=== PATIENT | female | born 1965 | race Caucasian/White ===

== ENCOUNTER 2025-09-13 11:05 | Emergency (ER) | payer BC, SELFPAY ==
[2025-09-13 11:07] VITALS: BP 118/70
[2025-09-13 11:37] VITALS: BMI 23.2
[2025-09-13] MEDS: NSS 1000 IV (11:47)
[2025-09-13] MEDS: REGLAN 10 MG IV (11:48)
--- NOTE | 2025-09-13 11:48 | ED.GENMED ---
History of Present Illness
<Sanju Jose PA-C - Last Filed: 09/14/25 06:08>
General
Chief Complaint: Headache
Time Seen by Provider: 09/13/25 11:22
History of Present Illness
History of Present Illness:
60-year-old female with history of migraines presents to the emergency department for evaluation of acute onset of headache that began abruptly upon awakening at 7 AM today accompanied by vomiting. Does not feel like prior migraines. Was unable to
tolerate any p.o. medications today. Denies any history of vomiting with migraine headaches. No chest pain or shortness of breath. No recent fevers. No recent head trauma. Does not take blood thinners.
Review of Systems
<Sanju Jose PA-C - Last Filed: 09/14/25 06:08>
Review of Systems
Allergies reviewed?: Yes
All Other Systems: ROS reviewed and negative except as documented in HPI and ROS
Phy Exam
<Sanju Jose PA-C - Last Filed: 09/14/25 06:08>
Physical Exam
Physical Exam:
GEN: Well appearing, NAD, WDWN
HEENT: Oral mucosa moist, no scleral icterus, no nasal congestion
Cardiac: Regular rate
Lung: No respiratory distress, no tachypnea
MSK: No gross deformity or injuries
Skin: Good color, no pallor or jaundice, no rashes
Neuro: AO x3; CN II-XII grossly intact. BUE strength 5/5 in all [place], sensation intact and symmetric. BLE strength 5/5 in all [place], sensation intact and symmetric
Psych: Calm, cooperative
Course
<Sanju Jose PA-C - Last Filed: 09/14/25 06:08>
Orders/Labs/Results
Orders:
Orders
09/13/25 11:26
CT Head W/o Iv Contrast Urgent
Comment:
Reason For Exam: headache, vomiting
0.9% Sodium Chloride 1000 ml [Nss] 1,000 ml IV BOLUS
Metoclopramide [Reglan] 10 mg IV NOW STA
09/13/25 11:49
Comprehensive Metabolic Panel Urgent
09/13/25 11:50
Complete Blood Count/No Diff Urgent
09/13/25 12:57
Ketorolac [Toradol] 15 mg IV NOW STA
Magnesium Sulfate 2 Gram/50 ml [Magnesium Sulfate] 2 gram in 50 ml IV NOW
09/13/25 13:54
Valproate Sodium [Depacon] 500 mg 0.9% Sodium Chloride 50 ml [Nss] 50 ml IV NOW
Abnormal Lab Results
09/13/25 09/13/25
11:49 11:50
RBC 3.81 L 10^6/uL
(4.20-5.40)
Hct 35.5 L %
(37.0-47.0)
MCH 32.0 H pg
(27.0-31.0)
Glucose 118 H mg/dl
(70-99)
09/13/25 11:50
09/13/25 11:49
Vital Signs
Initial and Last Documented VS:
Initial Vital Signs
Temp Pulse Resp BP Pulse Ox
97.6 F 82 16 118/70 100
09/13/25 11:07 09/13/25 11:07 09/13/25 11:07 09/13/25 11:07 09/13/25 11:07
Last Documented Vital Signs
Temp Pulse Resp BP Pulse Ox
97.8 F 75 16 105/57 98
09/13/25 15:00 09/13/25 16:40 09/13/25 16:40 09/13/25 16:40 09/13/25 16:40
<Kaleb Denis PA-C - Last Filed: 09/13/25 18:33>
Orders/Labs/Results
Orders:
Orders
09/13/25 11:26
CT Head W/o Iv Contrast Urgent
Comment:
Reason For Exam: headache, vomiting
0.9% Sodium Chloride 1000 ml [Nss] 1,000 ml IV BOLUS
Metoclopramide [Reglan] 10 mg IV NOW STA
09/13/25 11:49
Comprehensive Metabolic Panel Urgent
09/13/25 11:50
Complete Blood Count/No Diff Urgent
09/13/25 12:57
Ketorolac [Toradol] 15 mg IV NOW STA
Magnesium Sulfate 2 Gram/50 ml [Magnesium Sulfate] 2 gram in 50 ml IV NOW
09/13/25 13:54
Valproate Sodium [Depacon] 500 mg 0.9% Sodium Chloride 50 ml [Nss] 50 ml IV NOW
Abnormal Lab Results
09/13/25 09/13/25
11:49 11:50
RBC 3.81 L 10^6/uL
(4.20-5.40)
Hct 35.5 L %
(37.0-47.0)
MCH 32.0 H pg
(27.0-31.0)
Glucose 118 H mg/dl
(70-99)
09/13/25 11:50
09/13/25 11:49
Vital Signs
Initial and Last Documented VS:
Initial Vital Signs
Temp Pulse Resp BP Pulse Ox
97.6 F 82 16 118/70 100
09/13/25 11:07 09/13/25 11:07 09/13/25 11:07 09/13/25 11:07 09/13/25 11:07
Last Documented Vital Signs
Temp Pulse Resp BP Pulse Ox
97.8 F 75 16 105/57 98
09/13/25 15:00 09/13/25 16:40 09/13/25 16:40 09/13/25 16:40 09/13/25 16:40
<Sanju Jose PA-C - Last Filed: 09/14/25 06:08>
MDM/Problems Addressed
MDM/Problems Addressed:
60 yo female presenting w/ acute headache, CT obtained due to severity and atypical nature compared to prior h/a hx. No e/o SAH, treated for migraine. Signed out to Dewey Denis PA-c pending reassessment after valproic acid
<Sanju Jose PA-C - Last Filed: 09/14/25 06:08>
*Pulse Oximetry
SaO2: 100
Oxygen Mode of Delivery: Room air
<Kaleb Denis PA-C - Last Filed: 09/13/25 18:33>
*Pulse Oximetry
Patient hypoxic: no
*Critical Care Note
Total Time (30-74mins, 75-104mins- exclusive of procedures): Not Applicable
<Kaleb Denis PA-C - Last Filed: 09/13/25 18:33>
Patient Management
Escalation/DeEscalation of care consider admission/obs:
Patient received in signout pending reexamination following medications.
On reevaluation patient notes that her headache is significantly improved and ultimately would like to be discharged home. Patient was offered to stay in the hospital if headache continues however she declines. Patient encouraged to follow-up with
her primary care provider as well as neurology if need be. Otherwise stable for discharge home and aware of return precautions.
ED Attending Note
<Sanju Jose PA-C - Last Filed: 09/14/25 06:08>
-
Portions of this chart may have been created with voice recognition software.� Occasional wrong word or��sound alike� substitutions may have occurred due to the inherent limitations of voice recognition software.
Discharge Plan
Departure
Patient Disposition: Home (Routine Discharge)
Date of Disposition: 09/13/25
Time of Disposition: 16:30
Patient with high blood pressure during this ER visit?: No
Discharge Problem:
Headache
Instructions: Migraines (DC)
Referrals:
Tova Tiwari CRNP [Family Provider, Family Practice]
Interventions
Interventions:
*Risk Screen - Suicide Last Done: 09/13/25 11:07
*General Assessment Last Done: 09/13/25 11:38
*Neglect/Abuse Screening Last Done: 09/13/25 11:07
*ED- Fall Risk Assessment Last Done: 09/13/25 11:38
*ED COVID-19 Vaccine History Last Done: 09/13/25 11:38
*ED Influenza Vaccine History Last Done: 09/13/25 11:38
*Nursing Disposition Last Done: 09/13/25 16:40
ED- Neurological Assessment Last Done: 09/13/25 15:36
Discharge Date and Time
Discharge Date/Time: 09/13/25 16:40
Print Language: GEORGIAN
[2025-09-13 12:21] LABS: ALT (SGPT) 17 U/L (0-35); AST (SGOT) 24 U/L (14-36); Albumin 4.4 g/dl (3.5-5.0); Alkaline Phosphatase 47 U/L (38-126); Blood Urea Nitrogen 13 mg/dl (7-17); Calcium 9.2 mg/dl (8.4-10.2); Carbon Dioxide 28 mmol/L (22-30); Chloride 106 mmol/L (98-107); Estimated Creatinine Clearance 76 ml/min; Glucose 118 mg/dl (70-99); Potassium 4.1 mmol/L (3.5-5.1); Sodium 139 mmol/L (135-145); Total Protein 7.1 g/dl (6.3-8.2); eGFR > 60.00
[2025-09-13 12:23] LABS: Hematocrit 35.5 % (37.0-47.0); Hemoglobin 12.2 g/dL (12.0-16.0); Mean Corp Hgb Conc. 34.4 g/dL (33.0-37.0); Mean Corpuscular Volume 93.2 fL (81.0-99.0); Platelet Count 235 10^3/uL (130-400); Red Cell Dist. Width 11.7 % (11.5-14.5)
[2025-09-13] MEDS: TORADOL 15 MG IV (13:10)
[2025-09-13] MEDS: MAGNESIUM SULFATE 50 IV (13:11)
[2025-09-13] MEDS: DEPACON 55 MG IV (14:28)
[2025-09-13 15:00] VITALS: BP 95/52
[2025-09-13 16:40] VITALS: BP 105/57
== END 2025-09-13 16:40 | disposition home or self-care (01) ==
LOC: EMR 11:05
PROVIDERS: Physician Assistant; EMERGENCY PHYSICIAN Emergency Medicine; FAMILY PHYSICIAN Nurse Practitioner Family
DX: R51.9 Headache, unspecified (principal)
CPT/HCPCS: 99284; 70450; 80053; 85027

== ENCOUNTER → 2025-10-08 18:40 | Outpatient (REF) | payer BC, SELFPAY | LOC: MRI 3T 18:40 | PROVIDERS: ATTENDING PHYSICIAN Nurse Practitioner Family | DX: R90.89 Other abnormal findings on diagnostic imaging of central nervous system (principal) | CPT/HCPCS: 70553; A9575 ==